=== PATIENT | female | born 1960 | race Caucasian/White ===

== ENCOUNTER 2017-09-28 13:57 | Emergency (ER) | payer MEDICAID, SELFPAY ==
[2017-09-28 14:11] VITALS: BP 158/96; PULSE 79; RESP 20; TEMP 36.8; O2SAT 96; BMI 29.8
--- NOTE | 2017-09-28 14:26 | HMH.EDUTC ---
[facility] [place]ression: Lung infiltrate Disposition: Home, Self-Care Condition on Discharge: Good Instructions: DI for Cough -- Adult, Pneumonia-Adult Additional Instructions: * Monitor Temp. Tylenol and/or Ibuprofen as needed. ER if fever is no less than 101 despite alternating Tylenol and Ibuprofen * Encourage fluids, water, Gatorade, powerade, pedialyte if /toddler/or child * Warm salt water gargles for throat irritation *Warm fluids *Sore throat lozenges *Sleep elevated *humidifier or vaporizer Lots of rest Increase fluids, water, Gatorade, powerade *Flonase 2 sprays each nostril daily but may take 2-3 days to notice improvement with it *Your throat swab was sent to lab for culture. Those results area typically sent to your primary care physician. Be sure to follow up in 2-3 days if no improvement so they can review those results and treat if necessary If you dont have primary care I recommend you get one, but in the mean time you will have to return to a walk in clinic Follow up IMMEDIATELY for new or worsening of symptoms OR no noticeable improvement over the next 48-72 hours. 911 immediately for any life threatening symptoms such as chest pain or difficulty breathing Prescriptions: Fluticasone Propionate [Flonase 50mcg nasal spray 16gm] 2 spr NS DAILY #1 bottle Referrals: Lizzy Ruggiero [Primary Care Provider] - Time of Disposition: 15:09 Medical Decision Making - Medical Records Medical records reviewed: Yes: I reviewed the patient's medical records. Vital Signs: 09/28/17 14:11 Temperature 98.2 F Temperature Source Temporal Artery Scan Pulse Rate [Right] 79 Respiratory Rate 20 Blood Pressure [Right Arm] 158/96 Blood Pressure Mean [Right Arm] 116 Blood Pressure Source [Right Arm] Automatic Cuff Blood Pressure Position [Right Arm] Sitting 02 Sat by Pulse Oximetry 96 Oxygen Delivery Method Room Air - Lab Data Lab Results 09/28/17 14:27: Influenza Type A Ag Negative, Influenza Type B Ag Negative - Radiology Data #1 Image(s): Chest Image Reviewed: Yes I have reviewed radiologist's interpretation Subtle patchy infiltrate imn hte right lung base - Ramiro Inquiry Pt receiving controlled substance: No Ramiro was queried for this patient: No - Reevaluation(s) Time: 15:00 Reevaluation #1: Patient state that she is currently on 10 day prescription of Levaquin States that she has 3 days left of Levaquin, Discussed patient with [facility] Pharmacist and agreed on treatment, Give injection of Rocephin, have patient finish Levaquin and follow up with family doctor on Monday Patient state that she is allergic to Penicillin but has take Rocephin injection and other cephosporins in the past without reaction [facility] [place] - General Stated complaint: Sinus, cough, congested Mode of Arrival: Ambulatory Source of Information: Patient Limitations: No Limitations Description of Symptoms (Recalled from Triage Doc. by RN): COUGH, CONGESTION X3 MONTHS HEENT Symptoms (Recalled from RN notes): Yes Resp Symptoms (Recalled from RN notes): No Skin Symptoms (Recalled from RN notes): No MS Symptoms (Recalled from RN notes): No Functional Status (Recalled from RN notes): N - History of Present Illness Provider Complaint: Patient state that she has been being treated by family doctor for cough and congestion that has been occuring off and on for over 3 months State that now she feels worse State that she is having sinus issues and not sure if she may have the flu or not so she came in to get checked out - Related Data Home Medications Medication Instructions Recorded Confirmed Amlodipine Besylate [Norvasc 5mg 5 mg PO DAILY 09/28/17 09/28/17 tablet] Lisinopril [Lisinopril 40mg Tablet] 40 mg PO DAILY 09/28/17 09/28/17 Propranolol HCl [Inderal 20mg 20 mg PO DAILY 09/28/17 09/28/17 tablet] Previous Rx's Medication Instructions Recorded Fluticasone Propionate [Flonase 2 spr N
--- NOTE | 2017-09-28 14:27 | XR_ITS ---
XR chest 2V HISTORY: ITS.REASON: congestion ORDERING PHYSICIAN: Andreea Becker PATIENT AGE: 57 years COMPARISON: None available FINDINGS: The cardiomediastinal silhouette and pulmonary vascularity are within normal limits. There is a patchy area of increased density in the right lung base overlying the sixth rib anteriorly may be due to a patchy area of infiltrate. Hiatal hernia noted. No acute bony anomalies. IMPRESSION: Subtle patchy infiltrate in the right lung base
--- NOTE | 2017-09-28 14:29 | ED_ITS ---
[facility] [place] Clinical Impression: Lung infiltrate Disposition: Home, Self-Care Condition on Discharge: Good Instructions: DI for Cough -- Adult, Pneumonia-Adult Additional Instructions: * Monitor Temp. Tylenol and/or Ibuprofen as needed. ER if fever is no less than 101 despite alternating Tylenol and Ibuprofen * Encourage fluids, water, Gatorade, powerade, pedialyte if /toddler/or child * Warm salt water gargles for throat irritation *Warm fluids *Sore throat lozenges *Sleep elevated *humidifier or vaporizer Lots of rest Increase fluids, water, Gatorade, powerade *Flonase 2 sprays each nostril daily but may take 2-3 days to notice improvement with it *Your throat swab was sent to lab for culture. Those results area typically sent to your primary care physician. Be sure to follow up in 2-3 days if no improvement so they can review those results and treat if necessary If you don? t have primary care I recommend you get one, but in the mean time you will have to return to a walk in clinic Follow up IMMEDIATELY for new or worsening of symptoms OR no noticeable improvement over the next 48-72 hours. 911 immediately for any life threatening symptoms such as chest pain or difficulty breathing Prescriptions: Fluticasone Propionate [Flonase 50mcg nasal spray 16gm] 2 spr NS DAILY #1 bottle Referrals: Lizzy Ruggiero [Primary Care Provider] - Time of Disposition: 15:09 Medical Decision Making - Medical Records Medical records reviewed: Yes: I reviewed the patient's medical records. Vital Signs: 09/28/17 14:11 Temperature 98.2 F Temperature Source Temporal Artery Scan Pulse Rate [Right] 79 Respiratory Rate 20 Blood Pressure [Right Arm] 158/96 Blood Pressure Mean [Right Arm] 116 Blood Pressure Source [Right Arm] Automatic Cuff Blood Pressure Position [Right Arm] Sitting 02 Sat by Pulse Oximetry 96 Oxygen Delivery Method Room Air - Lab Data Lab Results 09/28/17 14:27: Influenza Type A Ag Negative, Influenza Type B Ag Negative - Radiology Data #1 Image(s): Chest Image Reviewed: Yes I have reviewed radiologist's interpretation Subtle patchy infiltrate imn hte right lung base - Ramiro Inquiry Pt receiving controlled substance: No Ramiro was queried for this patient: No - Reevaluation(s) Time: 15:00 Reevaluation #1: Patient state that she is currently on 10 day prescription of Levaquin States that she has 3 days left of Levaquin, Discussed patient with [facility] Pharmacist and agreed on treatment, Give injection of Rocephin, have patient finish Levaquin and follow up with family doctor on Monday Patient state that she is allergic to Penicillin but has take Rocephin injection and other cephosporins in the past without reaction [facility] [place]PI - General Stated complaint: Sinus, cough, congested Mode of Arrival: Ambulatory Source of Information: Patient Limitations: No Limitations Description of Symptoms (Recalled from Triage Doc. by RN): COUGH, CONGESTION X3 MONTHS HEENT Symptoms (Recalled from RN notes): Yes Resp Symptoms (Recalled from RN notes): No Skin Symptoms (Recalled from RN notes): No MS Symptoms (Recalled from RN notes): No Functional Status (Recalled from RN notes): N - History of Present Illness Provider Complaint: Patient state that she has been being treated by family doctor for cough and congestion that has been occuring off and on for over 3 months State that now she feels worse State that
[2017-09-28 14:44] LABS: UTC Influenza A Antigen Negative (Negative); UTC Influenza B Antigen Negative (Negative)
[2017-09-28 15:23] VITALS: BP 145/88; PULSE 80; RESP 20; TEMP 36.8
[2017-09-28 15:39] VITALS: BP 145/88; PULSE 80; RESP 20; TEMP 36.8
== END 2017-09-28 15:39 | disposition home or self-care (01) ==
PROVIDERS: Emergency Provider Nurse Practitioner; PCP Family Medicine Geriatric Medicine
DX: R91.8 Other nonspecific abnormal finding of lung field (principal); R05 Cough; R68.89 Other general symptoms and signs
CPT/HCPCS: 71046; 87804; 96372; 99202

== ENCOUNTER 2017-10-27 14:26 | Emergency (ER) | payer MEDICAID, SELFPAY ==
[2017-10-27 14:40] VITALS: BP 140/89; PULSE 73; RESP 20; TEMP 36.6; O2SAT 98; BMI 29.5
--- NOTE | 2017-10-27 15:20 | XR_ITS ---
XR chest 2V COMPARISON: PA and lateral chest 09/28/2017 HISTORY: Persistent cough TECHNIQUE: PA and lateral chest FINDINGS: The lung pandya are well expanded and appear clear of infiltrate. The cardiac silhouette and vascularity are normal and is no pleural fluid. Again noted is a moderate-sized hiatal hernia. IMPRESSION: Nonacute chest findings
--- NOTE | 2017-10-27 15:21 | HMH.EDUTC ---
[facility] [place] Disposition Clinical Impression: Cough Disposition: Home, Self-Care Condition on Discharge: Good Instructions: DI for Cough -- Adult Additional Instructions: * Monitor Temp. Follow up if fever develops * humidifier/vaporizer/hot steamy shower * Inhaler that you already mentioned you have at home every 4-6 hours as needed like we discussed. Should help open airways and improve cough, wheezing, shortness of breath. * Mucinex during the day for your cough and cough suppressant only at night. Be sure to drink lots of water. Insurance may not cover a prescription of mucinex. Might be cheaper to get 400mg tablets and take 2 tablets morning, midday and evening all with lots of water. * Bromfed may cause drowsiness. Know how it effects you (or your child) before driving, caring for small children, or sending your child to school. No other antihistamines/allergy medications while taking bromfed. * Start steroid today. Helps with inflammation therefore, cough and wheezing but also drainage. Follow directions on package. Rvwd side effects. Pt reports they have taken them before. We discussed previous experience with medrol dose pack. Pt wants to try prednisone. Agrees to monitor BP and follow up if elevated or ANY new symptoms. Prescriptions: Brompheniramine/Pseudoephed/Dm [Bromfed DM Cough Syrup 5mL] 10 ml PO QID PRN #240 ml PRN Reason: Cough predniSONE [Deltasone 10mg tablet] 10 mg PO DAILY 30 Days #30 tab predniSONE [Deltasone 10mg tablet] 10 mg PO BID 30 Days #10 tab Referrals: Lizzy Ruggiero [Primary Care Provider] - (IMMEDIATELY for new or worsening symptoms but also call PCP and schedule follow up appt for for difficulty breathing.) Time of Disposition: 16:16 Medical Decision Making - Medical Records Medical records reviewed: Yes: I reviewed the patient's medical records. MR Comment: 09/28/17 [facility] visit and CXR: dx lung infiltrate. Pt was already on levaquin for the second time from PCP at time of visit. Gave rocephin injection per pharmacy and instructions to use flonase. Pt was to follow up with PCP. CXR subtle patchy infiltrate right lung base - Ramiro Inquiry Pt receiving controlled substance: No Vital Signs: 10/27/17 14:40 Temperature 97.9 F Temperature Source Temporal Artery Scan Pulse Rate [Right Radial] 73 Respiratory Rate 20 Blood Pressure [Right Arm] 140/89 Blood Pressure Mean [Right Arm] 106 02 Sat by Pulse Oximetry 98 Oxygen Delivery Method Room Air - Lab Data Lab results reviewed: Yes: I reviewed the patient's lab results. Lab Results 10/27/17 15:05: Influenza Type A Ag Negative, Influenza Type B Ag Negative - Radiology Data #1 Image(s): Chest Image Reviewed: Yes I have reviewed radiologist's interpretation Preliminary Findings: Normal/NAD [facility] [place] HPI - General Stated complaint: Sinusitis Time Seen by Provider: 10/27/17 15:05 Mode of Arrival: Family Vehicle Source of Information: Patient Limitations: No Limitations Description of Symptoms (Recalled from Triage Doc. by RN): PT C/O SINUSITIS OR POSSIBLE PNEUMONIA. HEENT Symptoms (Recalled from RN notes): Yes (SINUSITIS) Resp Symptoms (Recalled from RN notes): Yes (POSSIBLE PNEUMONIA) Skin Symptoms (Recalled from RN notes): No MS Symptoms (Recalled from RN notes): No Functional Status (Recalled from RN notes): NA - History of Present Illness Provider Complaint: c/o I think maybe sinusitis and pneumonia again . Feels like she needs a steroid to help. Hx of HTN w/ steroids but at a time when my BP wasn't controlled already. It is now without medications. Wanting to try them again. Reports she was seen one month ago for symptoms that had been ongoing x months. Was treated w/ unknown medications. Followed up soon after w/ Dr. Lizzy Ruggiero because no improvement. She felt like nothing else was necessary at that time because of what I had gotten here . Slowly seemed to be somewhat better but never completely improved. Lyly
--- NOTE | 2017-10-27 15:25 | ED_ITS ---
[facility] [place] Clinical Impression: Cough Disposition: Home, Self-Care Condition on Discharge: Good Instructions: DI for Cough -- Adult Additional Instructions: * Monitor Temp. Follow up if fever develops * humidifier/vaporizer/hot steamy shower * Inhaler that you already mentioned you have at home every 4-6 hours as needed like we discussed. Should help open airways and improve cough, wheezing, shortness of breath. * Mucinex during the day for your cough and cough suppressant only at night. Be sure to drink lots of water. Insurance may not cover a prescription of mucinex. Might be cheaper to get 400mg tablets and take 2 tablets morning, midday and evening all with lots of water. * Bromfed may cause drowsiness. Know how it effects you (or your child) before driving, caring for small children, or sending your child to school. No other antihistamines/allergy medications while taking bromfed. * Start steroid today. Helps with inflammation therefore, cough and wheezing but also drainage. Follow directions on package. Rvwd side effects. Pt reports they have taken them before. We discussed previous experience with medrol dose pack. Pt wants to try prednisone. Agrees to monitor BP and follow up if elevated or ANY new symptoms. Prescriptions: Brompheniramine/Pseudoephed/Dm [Bromfed DM Cough Syrup 5mL] 10 ml PO QID PRN # 240 ml PRN Reason: Cough predniSONE [Deltasone 10mg tablet] 10 mg PO DAILY 30 Days #30 tab predniSONE [Deltasone 10mg tablet] 10 mg PO BID 30 Days #10 tab Referrals: Lizzy Ruggiero [Primary Care Provider] - (IMMEDIATELY for new or worsening symptoms but also call PCP and schedule follow up appt for for difficulty breathing.) Time of Disposition: 16:16 Medical Decision Making - Medical Records Medical records reviewed: Yes: I reviewed the patient's medical records. MR Comment: 09/28/17 [facility] visit and CXR: dx lung infiltrate. Pt was already on levaquin for the second time from PCP at time of visit. Gave rocephin injection per pharmacy and instructions to use flonase. Pt was to follow up with PCP. CXR subtle patchy infiltrate right lung base - Ramiro Inquiry Pt receiving controlled substance: No Vital Signs: 10/27/17 14:40 Temperature 97.9 F Temperature Source Temporal Artery Scan Pulse Rate [Right Radial] 73 Respiratory Rate 20 Blood Pressure [Right Arm] 140/89 Blood Pressure Mean [Right Arm] 106 02 Sat by Pulse Oximetry 98 Oxygen Delivery Method Room Air - Lab Data Lab results reviewed: Yes: I reviewed the patient's lab results. Lab Results 10/27/17 15:05: Influenza Type A Ag Negative, Influenza Type B Ag Negative - Radiology Data #1 Image(s): Chest Image Reviewed: Yes I have reviewed radiologist's interpretation Preliminary Findings: Normal/NAD [facility] [place] HPI - General Stated complaint: Sinusitis Time Seen by Provider: 10/27/17 15:05 Mode of Arrival: Family Vehicle Source of Information: Patient Limitations: No Limitations Description of Symptoms (Recalled from Triage Doc. by RN): PT C/O SINUSITIS OR POSSIBLE PNEUMONIA. HEENT Symptoms (Recalled from RN notes): Yes (SINUSITIS) Resp Symptoms (Recalled from RN notes): Yes (POSSIBLE PNEUMONIA) Skin Symptoms (Recalled from RN notes): No MS Symptoms (Recalled from RN notes): No Functional Status (Recalled from RN notes): NA - History of Present Illness Provider Complaint: c/o I think maybe sinusitis and pneumonia again . Feels like she needs a steroid to help. Hx of HTN w/ steroids
[2017-10-27 15:39] LABS: UTC Influenza A Antigen Negative (Negative); UTC Influenza B Antigen Negative (Negative)
[2017-10-27 16:17] VITALS: BP 138/75; PULSE 70; RESP 20; TEMP 36.8; O2SAT 99
== END 2017-10-27 16:18 | disposition home or self-care (01) ==
PROVIDERS: Emergency Provider Nurse Practitioner Family; PCP Family Medicine Geriatric Medicine
DX: J01.90 Acute sinusitis, unspecified (principal); I10 Essential (primary) hypertension; K21.9 Gastro-esophageal reflux disease without esophagitis; Z90.49 Acquired absence of other specified parts of digestive tract; Z88.0 Allergy status to penicillin
CPT/HCPCS: 71046; 87804; 99201